=== PATIENT | male | born 1955 | race Caucasian/White ===

== ENCOUNTER 2018-06-01 09:05 | Outpatient (CLI) | payer MEDICARE ==
--- NOTE | 2018-06-01 09:23 | RAD ---
PA AND LATERAL CHEST: History: Pneumonia follow up. FINDINGS: The heart size is normal. The aorta is tortuous. The lungs are well expanded without focal areas of c onsolidation, pneumothoraces or pleural effusions. There are degenerative changes in the spine. IMPRESSION: No radiographic evidence of acute cardiopulmonary process. POS: OFF
== END 2018-06-01 09:06 | disposition home or self-care (01) ==
LOC: RAD-FRANK 09:05
PROVIDERS: ATTEND Nurse Practitioner Family
DX: J18.9 Pneumonia, unspecified organism (principal)
CPT/HCPCS: 71046

== ENCOUNTER 2020-12-25 08:54 | Outpatient (CLI) | payer MEDICARE | END 2020-12-25 08:55 | disposition home or self-care (01) | LOC: RAD-FRANK 08:54 | PROVIDERS: ATTEND Nurse Practitioner Family | DX: Z01.818 Encounter for other preprocedural examination (principal) | CPT/HCPCS: 71046 ==